=== PATIENT | female | born 1945 | race Caucasian/White ===

== ENCOUNTER 2016-10-25 07:43 | Inpatient (IN) | payer MEDICARE, OTHER ==
[2016-10-24 12:17] LABS: BASOPHILS 0.6 %; BASOPHILS ABSOLUTE 0.05 10/3/uL (0.0-0.16); EOSINOPHILS ABSOLUTE 0.09 10/3/uL (0.0-0.53); HEMATOCRIT 37.6 % (36.0-48.0); HEMOGLOBIN 12.2 g/dL (12.0-16.0); IMMATURE GRANULOCYTES 0.2 %; IMMATURE GRANULOCYTES ABSOLUTE 0.02 10/3/uL (0.0-0.11); LYMPHOCYTES 9.6 %; LYMPHOCYTES ABSOLUTE 0.85 10/3/uL (0.67-4.30); MEAN CORPUSCULAR HEMOGLOB 32.2 pg (26.0-34.0); MEAN CORPUSCULAR VOLUME 99.2 fL (80-100); MEAN PLATELET VOLUME 10.2 fL (9.2-13.0); MONOCYTES 0.8 %; MONOCYTES ABSOLUTE 0.07 10/3/uL (0.21-1.20); NEUTROPHILS 87.8 %; NEUTROPHILS ABSOLUTE 7.73 10/3/uL (2.02-8.40); PLATELET COUNT 295 10/3/uL (150-400); RBC DISTRIBUTION WIDTH 14.4 % (12.0-16.0); RED CELL COUNT 3.79 10/6/uL (4.0-5.6); WHITE BLOOD CELLS 8.8 10/3/uL (4.5-10.5)
[2016-10-24 12:18] LABS: MANUAL DIFF NO %; MEAN CORPUS HGB CONC 32.4 g/dL (32.0-36.0)
[2016-10-24 12:32] LABS: ASCORBIC ACID (UR NOT ORDER) NEG (NEG); BILIRUBIN, URINE NEGATIVE (NEG); KETONE, URINE NEGATIVE (NEG); LEUKOCYTE ESTERASE(NOT OR NEG (NEG); WBC (NOT ORDERED) (RFLEX) < 1 (0-5)
[2016-10-24 12:34] LABS: BUN (BLOOD UREA NITROGEN) 22 MG/DL (6-23); CALCIUM, SERUM 9.8 MG/DL (8.5-10.4); CHLORIDE, SERUM 104 MMOL/L (96-112); CO2 (CARBON DIOXIDE) 31 MMOL/L (24-34); CREATININE 0.86 MG/DL (0.55-1.02); GFR AFRICAN AMERICAN 79 ML/MIN (>=60); GFR NON AFRICAN AMERICAN 68 ML/MIN (>=60); GLUCOSE, SERUM 101 MG/DL (60-99); POTASSIUM, SERUM 4.2 MMOL/L (3.5-5.3); SODIUM, SERUM 142 MMOL/L (135-148)
--- NOTE | ~2016-10-25 | OP ---
Record Of Operation [facility] [address] [place]. [address] NAME: KONSTANTIN CONWAY : 45 STATUS : ADM IN PAT#: [id number] AGE: 70 ADM/REG DATE : 10/25/16 MR#: [id number] REPORT SERV DATE: 10/25/16 DICTATED BY: MATHEW TOWNSEND DATE: 10/25/16 REPORT STATUS : Draft TRANSCRIBED BY: MODL DATE: 10/25/16 DATE OF PROCEDURE: 10/25/2016 PREOPERATIVE DIAGNOSIS: Severe left internal carotid artery stenosis with recent cerebrovascular accident. POSTOPERATIVE DIAGNOSIS: Severe left internal carotid artery stenosis with recent cerebrovascular accident. SURGERY PERFORMED: Left carotid endarterectomy with bovine patch angioplasty. SURGEON: Mathew Townsend M.D. [employer]: Waqas. DESCRIPTION OF PROCEDURE: The patient was placed under general endotracheal anesthesia. The neck and chest were prepped and draped in a sterile fashion. An incision made along the anterior border of the sternocleidomastoid muscle. This was carried through the skin and subcutaneous tissue. The platysma and deep cervical fascia was opened with the cautery unit. The facial vein doubly ligated with silk and divided. The common carotid artery was dissected from surrounding tissue and encircled with vessel loop. The internal encircle distally, the external was exposed posteriorly, she was given 5000 units of heparin. After an adequate period of time the internal, external, and common carotid arteries were occluded. Arteriotomy was made in the common and extended through the bulb in which she is found to have severe atherosclerotic disease with atheromata within the lumen. An #8 [place] shunt was placed without difficulty. Endarterectomy was carried out with the [place] elevator she was found to have plaque that extended almost into the adventitia that was unable to remove 100% of the plaque, due to this migration into the wall of the artery posteriorly. This was clean, it did show slight irregularity. The external done was an eversion technique and the proximal carotid was cut sharply. One tacking suture was placed in the distal step-off. Opening in the vessel then closed using a bovine patch which was sewn now with running 6-0 Prolene suture. Before the patch completed, the shunt was removed, flushing was carried out. The patch was then completed, suture was tied, flow was initially released to the external, and then to the internal carotid artery. 30 mg of protamine were given to reverse the heparin. A 7 flat FLORES drain was brought out inferiorly and sutured to the skin with 3-0 Vicryl suture. After hemostasis was achieved, the wound was closed with 2-0 and 3-0 Vicryl for the deep tissue and platysma. The skin was closed with 4-0 Monocryl subcuticular stitch. Sterile dressings were applied. Estimated blood loss was 150 mL. She awoke from the operating room table moving all four extremities. MG/MODL Mathew Townsend M.D. Record Of Operation [address] [address] NAME: KONSTANTIN CONWAY : 45 STATUS : ADM IN [facility]#: [id number] AGE: 70 ADM/REG DATE : 10/25/16 MR#: [id number] REPORT SERV DATE: 10/25/16 DICTATED BY: MATHEW TOWNSEND DATE: 10/25/16 REPORT STATUS : Draft TRANSCRIBED BY: MODL DATE: 10/25/16 / [id number] CC: Mathew Townsend M.D.
[~2016-10-25 07:43] MED LIST: ALIGN4 MG PO; ASAB PO; BEN25 PO; CELEXA40 MG PO; CLEOCIN300 MG PO; COZ25 PO; COZ50 PO; COZAAR100 MG PO; CRANBERRY EXTRACT PO; CYANO1000T PO; CYMBALTA30 PO; DETROLLA4 PO; DITRO5 PO; DURICEF PO; ENDOCET1 TAB PO; FERROUS SULF325 M1 PO; FOLIC PO; IRON325 MG PO; LIPITOR40 PO; LORCET PO; METHOC500B PO; METHOTREXATE25 MG/ML IN; MOBIC15 MG PO; MULTIPLE VIT PO; NAP500 PO; NORCO1 TAB PO; OS500+D PO; P5 PO; PLAVIX PO; PREDNISONE2.5 MG PO; PRILO PO; PROBIOTICS PO; RESTASIS OPH; SEPTRA DS1 TAB PO; T PO; TRAVATAN OPH; VANC125UDL PO; VESICARE10 MG PO; VESICARE5 PO; VITC500 PO; ZOL100 PO
[2016-10-26 03:32] LABS: BUN (BLOOD UREA NITROGEN) 26 MG/DL (6-23); CALCIUM, SERUM 8.7 MG/DL (8.5-10.4); CHLORIDE, SERUM 106 MMOL/L (96-112); CO2 (CARBON DIOXIDE) 29 MMOL/L (24-34); CREATININE 0.89 MG/DL (0.55-1.02); GFR AFRICAN AMERICAN 76 ML/MIN (>=60); GFR NON AFRICAN AMERICAN 66 ML/MIN (>=60); GLUCOSE, SERUM 97 MG/DL (60-99); POTASSIUM, SERUM 3.8 MMOL/L (3.5-5.3); SODIUM, SERUM 140 MMOL/L (135-148)
[2017-02-02] MEDS ORDERED: LIPITOR40 PO (14:46)
== END 2016-10-26 12:30 | disposition home or self-care (01) | DRG 39 ==
LOC: SDC/OF 07:43 → PACU 11:57 → CVICU 15:03
PROVIDERS: Surgery Vascular Surgery
PROC: 03CL0ZZ Extirpation of Matter from Left Internal Carotid Artery, Open Approach (ICD-10-PCS; 2016-10-25)
PROC: 03CN0ZZ Extirpation of Matter from Left External Carotid Artery, Open Approach (ICD-10-PCS; 2016-10-25)
PROC: 03UL0JZ Supplement Left Internal Carotid Artery with Synthetic Substitute, Open Approach (ICD-10-PCS; 2016-10-25)
PROC: 03CJ0ZZ Extirpation of Matter from Left Common Carotid Artery, Open Approach (ICD-10-PCS; principal; 2016-10-25 09:15)
DX: I63.239 Cerebral infarction due to unspecified occlusion or stenosis of unspecified carotid artery (principal); M06.9 Rheumatoid arthritis, unspecified; I10 Essential (primary) hypertension; Z79.52 Long term (current) use of systemic steroids; Z79.899 Other long term (current) drug therapy; Z88.2 Allergy status to sulfonamides; Z88.8 Allergy status to other drugs, medicaments and biological substances
CPT/HCPCS: 36415; 71020; 80048; 81001; 85025; 86850; 86870; 86900; 86901; 86902; 86920; 86922; 87641; 88304; 88311; 93005; A9270-GY; C1768; J0330; J0690; J1720; J2250; J2370; J2720; J3010